=== PATIENT | female | born 1945 | race Caucasian/White ===

== ENCOUNTER 2016-11-25 12:48 | Emergency (ER) | payer BC ==
[~2016-11-25] VITALS: Ht 157.5 cm; Wt 74.1 kg
[~2016-11-25 12:48] MED LIST: ASPI81TA28 PO; B-COTAB18 PO; BIOT1TAB5 PO; BISM262C6 PO; CALC500T68 PO; CHOL1TAB46 PO; COEN120C PO; MISCCAP80 PO; THY/60 PO; THYR90TA PO
[2016-11-25 12:55] VITALS: TEMP 36.6; Ht 157.5 cm; Wt 74.1 kg
[2016-11-25 13:53] LABS: BASO % 0.2 %; BASO ABS # 0.01 K/uL (0-0.2); COMPLETE YES; EOS % 3.2 %; HEMATOCRIT 39.4 % (37-47); IG% 0.2 %; LYMPH % 38.6 %; LYMPH ABS # 2.41 K/uL (1.2-3.4); MEAN CELL VOLUME 86.6 fL (80-100); MEAN CORPUSCULAR HEMOGLOBIN 29.5 pg (25-34); MEAN PLATELET VOLUME 10.3 fL (7.4-10.4); MONO % 9.9 %; NEUT % 47.9 %; PLATELET COUNT 226 K/uL (130-400); RED BLOOD COUNT 4.55 M/uL (4.2-5.4); WHITE BLOOD COUNT 6.24 K/uL (4.8-10.8)
[2016-11-25 14:03] LABS: PROTHROMBIN TIME (PATIENT) 10.4 SECONDS (9.0-12.0)
[2016-11-25 14:08] LABS: BUN/CREATININE RATIO 24.8 (10-20); CALCIUM 8.5 mg/dl (8.5-10.1); CREATININE 0.87 mg/dl (0.60-1.20)
[2016-11-25 14:18] LABS: THYROID STIMULATING HORMONE 0.897 uIu/ml (0.300-4.500)
--- NOTE | 2016-11-25 14:22 | EMERGENCY ROOM VISIT NOTE ---
ED Visit Note First contact with patient: 13:09 I have seen and examined this patient with Sol Lawson and generally agree with the treatment plan as discussed. Problem List Medical Problems: (1) H/O cardiac pacemaker Status: Chronic (2) Hypercholesteremia Status: Chronic (3) Hypothyroid Status: Chronic (4) Sick sinus syndrome Status: Resolved Current/Historical Medications Scheduled Aspirin (Aspirin Ec), 81 MG PO DAILY B-Complex Vitamins (Vitamin B Complex), 1 TAB PO QAM Biotin (Biotin), 1,000 MCG PO DAILY Bismuth Subsalicylate (Pepto-Bismol), 1 TAB PO DIRECTED Calcium W/ Magnesium (Calcium/Magnesium), 1 TAB PO DAILY Cholecalciferol (Vitamin D3), 5,000 INTER.UNIT PO DAILY Coenzyme Q10 (Ubidecarenone) (Co Q-10), 120 MG PO DAILY Probiotic Product (Probiotic), 1 CAP PO QAM Thyroid (Beaver Thyroid), 90 MG PO 5XWK Thyroid (Thyroid Extract), 60 MG PO 2XWK Allergies Coded Allergies: Codeine (Verified Adverse Reaction, Intermediate, "ACTS CRAZY", 06/08/16) Vital Signs Date Time Temp Pulse Resp B/P (MAP) Pulse Ox O2 Delivery O2 Flow Rate FiO2 11/25/16 12:55 36.6 61 18 117/79 96 Room Air Laboratory Results 11/25/16 13:45 Red Blood Count 4.55, Mean Corpuscular Volume 86.6, Mean Corpuscular Hemoglobin 29.5, Mean Corpuscular Hemoglobin Concent 34.0, Mean Platelet Volume 10.3, Neutrophils (%) (Auto) 47.9, Lymphocytes (%) (Auto) 38.6, Monocytes (%) (Auto) 9.9, Eosinophils (%) (Auto) 3.2, Basophils (%) (Auto) 0.2, Neutrophils # (Auto) 2.99, Lymphocytes # (Auto) 2.41, Monocytes # (Auto) 0.62, Eosinophils # (Auto) 0.20, Basophils # (Auto) 0.01 11/25/16 13:45 Test 11/25/16 13:45 White Blood Count 6.24 K/uL (4.8-10.8) Red Blood Count 4.55 M/uL (4.2-5.4) Hemoglobin 13.4 g/dL (12.0-16.0) Hematocrit 39.4 % (37-47) Mean Corpuscular Volume 86.6 fL (80-100) Mean Corpuscular Hemoglobin 29.5 pg (25-34) Mean Corpuscular Hemoglobin Concent 34.0 g/dl (32-36) Platelet Count 226 K/uL (130-400) Mean Platelet Volume 10.3 fL (7.4-10.4) Neutrophils (%) (Auto) 47.9 % Lymphocytes (%) (Auto) 38.6 % Monocytes (%) (Auto) 9.9 % Eosinophils (%) (Auto) 3.2 % Basophils (%) (Auto) 0.2 % Neutrophils # (Auto) 2.99 K/uL (1.4-6.5) Lymphocytes # (Auto) 2.41 K/uL (1.2-3.4) Monocytes # (Auto) 0.62 K/uL (0.11-0.59) Eosinophils # (Auto) 0.20 K/uL (0-0.5) Basophils # (Auto) 0.01 K/uL (0-0.2) RDW Standard Deviation 44.3 fL (36.4-46.3) RDW Coefficient of Variation 14.0 % (11.5-14.5) Immature Granulocyte % (Auto) 0.2 % Immature Granulocyte # (Auto) 0.01 K/uL (0.00-0.02) Prothrombin Time 10.4 SECONDS (9.0-12.0) Prothromb Time International Ratio 1.0 (0.9-1.1) Activated Partial Thromboplast Time 26.8 SECONDS (21.0-31.0) Partial Thromboplastin Ratio 1.0 Anion Gap 9.0 mmol/L (3-11) Est Creatinine Clear Calc Drug Dose 57.5 ml/min Estimated GFR () 78.8 Estimated GFR (Non- 68.0 BUN/Creatinine Ratio 24.8 (10-20) Calcium Level 8.5 mg/dl (8.5-10.1) Thyroid Stimulating Hormone (TSH) 0.897 uIu/ml (0.300-4.500) Departure Information Referrals Adolph Sexton M.D. (PCP) Patient Instructions My [facility]
[2016-11-25 14:47] LABS: LYME DISEASE AB IGG NEG (NEG); LYME DISEASE AB IGM NEG (NEG)
[2016-11-25] MEDS ORDERED: THYR1TAB PO ×2 (14:59)
--- NOTE | 2016-11-25 15:05 | EMERGENCY ROOM VISIT NOTE ---
History First contact with patient: 13:09 Chief Complaint: ILLNESS Stated Complaint: TICK BITE History of Present Illness The patient is a 71 year old female who presents to the Emergency Room with complaints of tick bite. The patient states that she removed a tick from her right thigh this morning. She also states that she has a red timbo on the left side of her neck which she is unsure how long it has been there. She is not C a tick at that area. The patient is concerned because she has had muscle aches and body pains mainly on the left side of her body for the past 3 weeks. She also admits that she has been having night sweats but denies any cough or fever. 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 The patient states she called her PCP and was instructed to come to the ER for evaluation. Review of Systems 10 system review was performed and was negative unless stated otherwise history of present illness. Past Medical/Surgical History Medical Problems: (1) H/O cardiac pacemaker (2) Hypercholesteremia (3) Hypothyroid (4) Sick sinus syndrome Rhinoplasty Hysterectomy Knee surgery Right shoulder surgery Family History FHx: stroke (father) Social History Smoking Status: Never Smoker Alcohol Use: occasionally Drug Use: none Marital Status: Housing Status: lives with significant other Occupation Status: retired Current/Historical Medications Scheduled Aspirin (Aspirin Ec), 81 MG PO DAILY B-Complex Vitamins (Vitamin B Complex), 1 TAB PO QAM Biotin (Biotin), 1,000 MCG PO DAILY Cholecalciferol (Vitamin D3), 5,000 INTER.UNIT PO DAILY Coenzyme Q10 (Ubidecarenone) (Co Q-10), 120 MG PO DAILY Probiotic Product (Probiotic), 1 CAP PO QAM Thyroid (Wp Thyroid), 81.25 MG PO 5XWK Thyroid (Wp Thyroid), 65 MG PO 2XWK Allergies Coded Allergies: Codeine (Verified Adverse Reaction, Intermediate, "ACTS CRAZY", 11/25/16) Prednisone (Unverified Adverse Reaction, Unknown, "WACKY", 11/25/16) Physical Exam Vital Signs Date Time Temp Pulse Resp B/P (MAP) Pulse Ox O2 Delivery O2 Flow Rate FiO2 11/25/16 12:55 36.6 61 18 117/79 96 Room Air Physical Exam GENERAL: 71-year-old white female appears in no acute distress. MENTAL Status: Alert and oriented 3. EARS: Canals clear. TMs without fluid level noted. NECK: Supple, no lymphadenopathy noted. No carotid bruits noted. Thyroid without enlargement or nodularity. NOSE: Nasal mucosa without erythema or engorgement PHARYNX: No erythema or edema noted. Airway is adequate. MOUTH: Teeth nontender to percussion. Patient is able to open and close her mouth but there is clicking noted of both TMs. The patient has some tenderness palpation over the left mandible. No palpable submandibular nodes noted. LUNGS: Clear auscultation without wheezes rales or rhonchi. CARDIAC: Regular rate and rhythm without murmur. Pulses is full and equal throughout. SKIN: Erythematous papule noted on the left sided neck. No central foreign body noted. Remainder skin is clear. There is no rash or evidence of recent tick bite on the right thigh as per patient's history. Medical Decision & Procedures Laboratory Results 11/25/16 13:45 Red Blood Count 4.55, Mean Corpuscular Volume 86.6, Mean Corpuscular Hemoglobin 29.5, Mean Corpuscular Hemoglobin Concent 34.0, Mean Platelet Volume 10.3, Neutrophils (%) (Auto) 47.9, Lymphocytes (%) (Auto) 38.6, Monocytes (%) (Auto) 9.9, Eosinophils (%) (Auto) 3.2, Basophils (%) (Auto) 0.2, Neutrophils # (Auto) 2.99, Lymphocytes # (Auto) 2.41, Monocytes # (Auto) 0.62, Eosinophils # (Auto) 0.20, Basophils # (Auto) 0.01 11/25/16 13:45 Test 11/25/16 13:45 11/25/16 14:37 White Blood Count 6.24 K/uL (4.8-10.8) Red Blood Count 4.55 M/uL (4.2-5.4) Hemoglobin 13.4 g/dL (12.0-16.0) Hematocrit 39.4 % (37-47) Mean Corpuscular Volume 86.6 fL (80-100) Mean Corpuscular Hemoglobin 29.5 pg (25-34) Mean Corpuscular Hemoglobin Concent 34.0 g/dl (32-36) Platelet Count 226 K/uL (130-400) Mean Platelet Volume 10.3 fL (7.4-10.4) Neutrophils (%) (Auto) 47.9 % Lymphocytes (%) (Auto) 38.6 % Monocytes (%) (Auto) 9.9 % Eosinophils (%) (Auto) 3.2 % Basophils (%) (Auto) 0.2 % Neutrophils # (Auto) 2.99 K/uL (1.4-6.5) Lymphocytes # (Auto) 2.41 K/uL (1.2-3.4) Monocytes # (Auto) 0.62 K/uL (0.11-0.59) Eosinophils # (Auto) 0.20 K/uL (0-0.5) Basophils # (Auto) 0.01 K/uL (0-0.2) RDW Standard Deviation 44.3 fL (36.4-46.3) RDW Coefficient of Variation 14.0 % (11.5-14.5) Immature Granulocyte % (Auto) 0.2 % Immature Granulocyte # (Auto) 0.01 K/uL (0.00-0.02) Prothrombin Time 10.4 SECONDS (9.0-12.0) Prothromb Time International Ratio 1.0 (0.9-1.1) Activated Partial Thromboplast Time 26.8 SECONDS (21.0-31.0) Partial Thromboplastin Ratio 1.0 Anion Gap 9.0 mmol/L (3-11) Est Creatinine Clear Calc Drug Dose 57.5 ml/min Estimated GFR () 78.8 Estimated GFR (Non- 68.0 BUN/Creatinine Ratio 24.8 (10-20) Calcium Level 8.5 mg/dl (8.5-10.1) Thyroid Stimulating Hormone (TSH) 0.897 uIu/ml (0.300-4.500) Lyme Disease IgG Antibody NEG (NEG) Lyme Disease IgM Antibody NEG (NEG) ED Course The patient was evaluated. IV access was obtained. CBC and differential, renal profile, TSH, coags, Lyme titer was drawn. The patient was independently evaluated by Dr. Purcell who agreed with treatment plan. He did decide to send the tick for analysis. Labs are reviewed. White count was normal. BUN was slightly elevated. TSH was normal. Lyme titer was negative. The patient was informed of all findings and discharged home in stable condition. Medical Decision Differential diagnosis include Lyme's disease, viral syndrome, hypothyroidism, anemia Impression Primary Impression: Tick bite Additional Impression: Myalgia Departure Information Dispostion Home / Self-Care Condition GOOD Referrals Adolph Sexton M.D. (PCP) Forms HOME CARE DOCUMENTATION FORM, IMPORTANT VISIT INFORMATION, WORK / SCHOOL INSTRUCTIONS Patient Instructions [facility] Additional Instructions Push fluids. Tylenol as needed for pain. Recommend follow-up with your family physician if symptoms are not improving in 1 week. Problem Qualifiers Primary Impression: Tick bite Encounter type: initial encounter Qualified Codes: W57.XXXA - Bitten or stung by nonvenomous insect and other nonvenomous arthropods, initial encounter
[2016-11-25 15:06] VITALS: BP 114/72; PULSE 63; O2SAT 97
== END 2016-11-25 15:10 | disposition home or self-care (01) ==
LOC: C.EDB 12:49 → C.EDC 15:10
DX: S70.361A Insect bite (nonvenomous), right thigh, initial encounter (principal); W57.XXXA Bitten or stung by nonvenomous insect and other nonvenomous arthropods, initial encounter; M79.1 Myalgia; E03.9 Hypothyroidism, unspecified; Z95.0 Presence of cardiac pacemaker; Z90.710 Acquired absence of both cervix and uterus; Z98.890 Other specified postprocedural states; Z79.82 Long term (current) use of aspirin; Z79.899 Other long term (current) drug therapy

== ENCOUNTER → 2016-12-13 | Outpatient (CLI) | payer BC ==
[~2016-12-13] MED LIST changes: -BISM262C6 PO; -CALC500T68 PO; -THY/60 PO; +THYR1TAB PO; -THYR90TA PO
== END | disposition home or self-care (01) ==
LOC: C.RDSM 15:27
PROVIDERS: ATTEND Family Medicine
DX: M25.552 Pain in left hip (principal)

== ENCOUNTER → 2017-01-19 | Outpatient (CLI) | payer BC ==
[2017-01-19 18:58] LABS: URINE APPEARANCE CLEAR (CLEAR); URINE BILIRUBIN NEG (NEG); URINE COLOR DK YELLOW; URINE NITRITE NEG (NEG); UROBILINOGEN NEG (NEG)
[2017-01-19 19:01] LABS: MANUAL MICROSCOPIC REQUIRED? NO; REVIEW REQ? NO
== END | disposition home or self-care (01) ==
LOC: C.LABSPEC 15:15
PROVIDERS: ATTEND Physician Assistant
DX: R35.0 Frequency of micturition (principal)

== ENCOUNTER → 2017-02-12 | Outpatient (CLI) | payer BC ==
--- NOTE | 2017-02-12 14:55 | DIAGNOSTIC IMAGING REPORT ---
RIGHT HAND MIN 3 VIEWS ROUTINE CLINICAL HISTORY: 71 years-old Female presenting with BILATERAL HAND PAIN Right. TECHNIQUE: Frontal, oblique, and lateral views of the right hand were obtained. COMPARISON: Correlation made to plain radiographs of the left hand performed at the same time. FINDINGS: Mild degenerative changes of distal interphalangeal joints as well as at the second metacarpophalangeal joint. More extensive degenerative change noted at the first carpometacarpal articulation. No acute fracture or malalignment. Osteopenia suggested. IMPRESSION: No acute osseous injury. Degenerative joint disease as above. This is most severe at the first carpometacarpal articulation, which is characteristic of osteoarthritis. Electronically signed by: Adolph Mercer M.D. 02/12/2017 2:53 PM Dictated Date/Time: 02/12/2017 2:52 PM
--- NOTE | 2017-02-12 14:56 | DIAGNOSTIC IMAGING REPORT ---
LEFT HAND MIN 3 VIEWS ROUTINE CLINICAL HISTORY: 71 years-old Female presenting with BILATERAL HAND PAIN, history of Lyme's disease, joint pain. TECHNIQUE: Frontal, oblique, and lateral views of the left hand were obtained. COMPARISON: Correlation made to plain radiographs of the right hand performed the same day. FINDINGS: Degenerative changes at the first carpometacarpal articulation. Degenerative changes at the first metacarpophalangeal joint. Subtle degenerative change suspected at the distal interphalangeal joints with marginal osteophytosis. No acute fracture or malalignment. Osteopenia may be present. Regional soft tissues within normal limits. IMPRESSION: No acute osseous injury. Degenerative joint disease most severe at the first carpometacarpal articulation, which is characteristic of osteoarthritis. Electronically signed by: Adolph Mercer M.D. 02/12/2017 2:55 PM Dictated Date/Time: 02/12/2017 2:53 PM
--- NOTE | 2017-02-12 14:58 | DIAGNOSTIC IMAGING REPORT ---
LEFT KNEE 1 OR 2 VIEWS ROUTINE CLINICAL HISTORY: 71 years-old Female presenting with BILATERAL HAND Pain, chronic SACROILIAC PAIN, L KNEE PAIN. TECHNIQUE: Frontal and lateral views of the left knee were obtained. COMPARISON: Correlation made to frontal radiographs of the bilateral knees from 2010. FINDINGS: No acute fracture or malalignment. Osteophytosis most prominent at the lateral tibial plateau. No significant joint space loss. Enthesophyte noted at the quadriceps insertion. Minimal osteophytosis in the patellofemoral compartment. No large knee effusion. IMPRESSION: Degenerative changes of the knee primarily in the lateral and patellofemoral compartments. No acute osseous injury. Electronically signed by: Adolph Mercer M.D. 02/12/2017 2:57 PM Dictated Date/Time: 02/12/2017 2:55 PM
--- NOTE | 2017-02-12 15:03 | DIAGNOSTIC IMAGING REPORT ---
SI JOINTS 3 OR MORE VIEWS CLINICAL HISTORY: BILATERAL HAND PAIN,CHRONIC SACROILIAC PAIN, L KNEE PAIN COMPARISON STUDY: AP pelvis dated 01/22/2013 FINDINGS: No fractures are visualized. There are mild degenerative changes. There is no evidence of SI joint fusion. There are no erosive changes. IMPRESSION: Degenerative change. No conventional radiographic evidence of an inflammatory sacroiliitis Electronically signed by: Mando Rizzo M.D. 02/12/2017 3:02 PM Dictated Date/Time: 02/12/2017 2:51 PM
[2017-02-17 05:29] LABS: ANTI-CENTROMERE AB <1.0 NEG AI (<1.0 NEG); ANTI-SS-A <1.0 NEG AI (<1.0 NEG); ANTI-SS-B <1.0 NEG AI (<1.0 NEG); DNA ds CRITHIDIA NEGATIVE (NEGATIVE); Sm Antibody <1.0 NEG AI (<1.0 NEG)
== END | disposition home or self-care (01) ==
LOC: C.LAB1850 10:01
PROVIDERS: ATTEND Internal Medicine Rheumatology
DX: M25.562 Pain in left knee (principal); M53.3 Sacrococcygeal disorders, not elsewhere classified; M79.641 Pain in right hand; M79.642 Pain in left hand; Z15.89 Genetic susceptibility to other disease; M18.12 Unilateral primary osteoarthritis of first carpometacarpal joint, left hand; M17.12 Unilateral primary osteoarthritis, left knee

== ENCOUNTER → 2017-02-16 | Outpatient (CLI) | payer BC | END | disposition home or self-care (01) | LOC: C.PAPS 13:43 | PROVIDERS: ATTEND Obstetrics & Gynecology | DX: Z98.890 Other specified postprocedural states (principal) ==